=== PATIENT | male | born 1975 | race Caucasian/White ===

== ENCOUNTER → 2018-05-05 | Outpatient (CLI) | payer OTHER ==
[~2018-05-05] MED LIST: NORCO 5-325 TA1 EAC1 PO; OMEPRAZOLE 20 M20 M1 PO
== END ==
LOC: M.ULTRA 11:00
DX: N50.819 Testicular pain, unspecified (principal); R10.30 Lower abdominal pain, unspecified

== ENCOUNTER 2019-09-29 15:45 | Inpatient (IN) | payer OTHER ==
[2019-09-29] VITALS (12 sets, daily range): BP systolic 100–153; BP diastolic 59–87
[~2019-09-29] VITALS: Ht 170.2 cm; Wt 98.9 kg
[2019-09-29] MEDS ORDERED: LISINOPRIL2.5 MG PO (15:50)
[2019-09-29 16:07] LABS: ABSOLUTE BASOPHILS 0.2 thou/uL (0.0-0.2); ABSOLUTE EOSINOPHILS 0.2 thou/uL (0.0-0.7); ABSOLUTE LYMPHOCYTES 1.7 thou/uL (0.8-5.3); ABSOLUTE MONOCYTES 0.9 thou/uL (0.0-1.2); ABSOLUTE NEUTROPHILS 7.7 thou/uL (1.6-8.1); BASOPHILS 1.5 %; EOSINOPHILS 2.3 %; HEMOGLOBIN 15.2 gm/dL (14.0-18.0); MCH 30.2 pg (26.0-34.0); MCHC 35.4 g/dL (28.0-37.0); MCV 85.2 fL (80.0-100.0); MONOCYTES 8.8 %; MPV 7.5 fl. (7.2-11.1); NUCLEATED RBCS 0 /100WBC; PLATELET COUNT* 486 thou/uL (150-400); POLYS 71.4 %; RBC 5.05 mil/uL (4.50-6.00); RDW-CV 12.5 % (10.5-14.5); WBC 10.8 thou/uL (4.0-11.0)
--- NOTE | 2019-09-29 16:09 | NUR ---
SEE CODE STEMI FLOWSHEET FOR ADDITIONAL INFORMATION. 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
[2019-09-29 16:14] LABS: CREATININE 1.1 mg/dL (0.6-1.3)
[2019-09-29 16:15] LABS: APTT 25.8 Seconds (25.0-31.3); PROTIME 10.3 Seconds (9.20-11.50)
[2019-09-29 16:19] LABS: ALBUMIN 3.8 g/dL (3.4-5.0); TOTAL BILIRUBIN 0.6 mg/dL (<0.1-1.0); TOTAL PROTEIN 8.2 g/dL (6.4-8.2)
--- NOTE | 2019-09-29 18:30 | CARD ---
[address] [address] CARDIAC CATH REPORT Name: LACHELLE MCINTYRE Room: 006-P ADM IN M.R.#: [id number] Admission: 09/29/19 Attend Phys: Jaskaran Bates MD, F Discharge: Date of : 77 Report #: [id number] THIS REPORT FOR: //name// cc: Buck Reyes Vincent R. DO ~ APPROVED REPORT Study performed: 09/29/2019 15:41:54 Patient Details Patient Status: ED Room #: The patient is a 43 year-old male Event Personnel Jaskaran Bates Automobile Lights Assembler, Trudi Fuentes RN Actuarial Science Professor, Nelia Adhikari RTR Monitor, Justine Turcios RTR Scrub, Jennifer Levin RN Actuarial Science Professor Procedures Performed Art Access - R radial artery, Left Heart Cath w/or w/o Coronaries LHC, BROOK Revasc AMI Total/Sub Single RCA AMIREVSING , Hemostasis with Hemoband Indication Abnormal ECG, STEMI (>0 to less than or equal to 6 hours), Chest pain Risk Factors Arterial Hypertension Admission/Lab Medications/Medications given during procedure Glycoprotein IllbIlla Inhibitors, Heparin Unfract., Morphine IV 2 mg, Radial cocktail Nitroglycerin IA 400 mcg total, Verapamil IA 5 mg total, Heparin IV bolus 7000 units total, Amiodarone IV 150 mg per min, Amiodarone IV 600 ml per hr, Amiodarone IV 2 mg per min, Effient PO 60 mg, Aggrastat IV bolus 10 ml Procedure Narrative The patient was brought emergently to the Cardiac Catheterization Laboratory and was prepped and draped in a sterile manner. The right wrist was infiltrated with 2% Lidocaine subcutaneous anesthesia. A 6F Slender Glidesheath sheath was inserted into the right radial artery. Coronary angiography was performed using coronary diagnostic catheters. The right coronary system [place] [address] CARDIAC CATH REPORT Name: LACHELLE MCINTYRE Room: [address] IN ..#: [id number] Admission: 09/29/19 Attend Phys: Jaskaran Bates MD, F Discharge: Date of : 77 Report #: [id number] a 6F JR4 catheter. The left coronary system was accessed and visualized with a 6F JL4 catheter. The left ventricle was accessed and visualized with a 6F JR4 and 6F Pigtail catheter. Left ventricular/Aortic Valve gradient assessed via catheter pullback. Left ventriculogram was performed in VEGAS projection. Closure device was deployed with a 6 Fr vascband. The patient tolerated the procedure well and there were no complications associated with the procedure. There was no hematoma. During the procedure, the patient developed ventricular fibrillation. Patient was defibrillated twice successfully at 300 Joules. Patient was given 150 mg of IV amiodarone. Vasc band closure device of right radial artery, with 11 ml. Intraoperative Conscious Sedation Procedure start time: 16:12. Procedure end time: 17:06. No sedation given. Fluoro Time: 13.3 minutes Dose: DAP [id number] cGycm2 2845 mGy Contrast Type and Amount: Visipaque 265 ml Coronary Angiography The patient's coronary anatomy is right dominant. [place] Artery Percent Stenosis Left Main: 0 % Prox LAD: 30 % Mid/Distal LAD: 0 % Circumflex: 0 % RCA: 100 % Ramus: %Thrombus noted in the distal RCA Left Ventriculography The left ventricular ejection fraction is estimated to be 60-65%. Left ventricular wall motion abnormalities are not present. There is no mitral insufficiency. Hemodynamics The aortic pressure is 126/77 mmHg with a mean of 97 mmHg. The left ventricular pressure is 128/10 mmHg with a mean of mmHg. The left ventricular end diastolic pressure is 18 mmHg. There was no gradient across the aortic valve upon pullback. Pullback from the left ventricle to the aorta revealed no gradient across the aortic valve. PCI Technique Lesion Anticoagulation was achieved with Heparin. bolus of iv aggrastat given Percutaneous coronary intervention was performed on the distal right coronary artery. The lesion stenosis prior to intervention was [facility] [address] [place] [address] CARDIAC CATH REPORT Name: LACHELLE MCINTYRE Room: [address] IN .R.#: [id number] Admission: 09/29/19 Attend Phys: Jaskaran Bates MD, F Discharge: Date of : 77 Report #: [id number] 100% with DAR 0 flow. A 6FR XBRCA Guide Catheter was used to engage the rca ostium. A BMW 190cm Interventional Guidewire was used to cross the lesion. BALLOON DILATION A Balloon catheter Trek RX 2.5 X 8 was inserted and inflated up to 9.00atm for 9seconds. Repeat angiography revealed the following post-dilatation results: 50% stenosis. Additional Inflation: 12.00atm for 12seconds. Additional Inflation: 14.00atm for 18seconds. Because of tortous aorta, unable to cannulate rca with neither 3drc nor amplatz right I guide. STENT DEPLOYMENT A drug-eluting stent [place] RX Stent 3.0X15mm was inserted and inflated up to 10.00atm for 15seconds. Repeat angiography revealed the following post-stent deployment results: 0% stenosis. Additional Inflation: 12.00atm for 11seconds. Final angiography reveals 0 % stenosis with DAR 3 flow. Conclusion 1. acute IWSTEMI with acute occlusion of the distal rca 2. successful placement of a single drug eluting stent in the rca 3. LVEF 60-65% 4. successful direct current cardioversion of two episodes of ventricular fibrillaion during the procedure Recommendations Cardiac Rehabilitation Referral Aggressive Medical Therapy Medications Administered Prasugrel <ELECTRONICALLY SIGNED> By: Jaskaran Bates MD, FACC 09/29/191827 27 27Dafederico Bates MD, FACC /INF
--- NOTE | 2019-09-29 18:45 | NUR ---
ADMITTED TO ICU AT 1745 POST STEMI. INITIALLY HAD BLURRY VISION, NOT DOUBLE. DR CALZADA AT BEDSIDE & REPORTED TO HIM. THEN HAD HOT FLASH. BS CHECKED-WNL. RESOLVED. DENIED CP, NAUSEA & VOMITING.
[2019-09-30] VITALS (18 sets, daily range): BP systolic 119–137; BP diastolic 65–86
[2019-09-30 04:11] LABS: ABSOLUTE BASOPHILS 0.1 thou/uL (0.0-0.2); ABSOLUTE EOSINOPHILS 0.2 thou/uL (0.0-0.7); ABSOLUTE LYMPHOCYTES 1.1 thou/uL (0.8-5.3); ABSOLUTE MONOCYTES 0.9 thou/uL (0.0-1.2); ABSOLUTE NEUTROPHILS 7.4 thou/uL (1.6-8.1); BASOPHILS 1.2 %; EOSINOPHILS 1.8 %; HEMATOCRIT 39.8 % (42.0-52.0); HEMOGLOBIN 13.7 gm/dL (14.0-18.0); LYMPHOCYTES 10.9 %; MCH 29.8 pg (26.0-34.0); MCHC 34.5 g/dL (28.0-37.0); MCV 86.5 fL (80.0-100.0); MONOCYTES 9.5 %; MPV 7.6 fl. (7.2-11.1); NUCLEATED RBCS 0 /100WBC; POLYS 76.6 %; RDW-CV 12.1 % (10.5-14.5); WBC 9.7 thou/uL (4.0-11.0)
[2019-09-30 04:30] LABS: ANION GAP 10 mmol/L (7-16); BUN 14 mg/dL (7-18); CALCIUM 8.3 mg/dL (8.5-10.1); CHLORIDE 106 mmol/L (98-107); CHOLESTEROL 142 mg/dL (<200); CO2 23 mmol/L (21-32); CREATININE 0.8 mg/dL (0.6-1.3); GLUCOSE 106 mg/dL (70-99); HDL CHOLESTEROL 17 mg/dL (>40); LDL CHOLESTEROL 90 mg/dL (<100); SODIUM 139 mmol/L (136-145); TC:HDL 8.4 Ratio (Not establshd); TRIGLYCERIDE 177 mg/dL (<150); VLDL 35 mg/dL (<40)
[2019-09-30 04:33] LABS: PLATELET COUNT* 361 thou/uL (150-400)
[2019-09-30 04:34] LABS: SERUM ASSESSMENT CLEAR; TROPONIN-I LEVEL 18.05 ng/mL (<0.06)
--- NOTE | 2019-09-30 18:01 | NUR ---
PT OUT OF BED AND TOLERATING ACTIVITY. NO CHEST PAIN. VSS. TOLERATING DIET. GOOD OUTPUT. DSG TAKEN OFF OF RADIAL SITE. PROGRESSING TOWARDS GOALS.
[2019-10-01] VITALS: BP 147/77
[2019-10-01 04:00] VITALS: BP 137/73
--- NOTE | 2019-10-01 06:06 | NUR ---
PATIENT SLEPT MOST OF THE NIGHT. IV REMAINS SALINE LOCKED. PATIENT REMAINS SR ON THE MONITOR. PATIENT IS POSSIBLY GOING HOME TODAY. WILL CONTINUE TO MONITOR.
[2019-10-01 08:00] VITALS: BP 140/81
--- NOTE | 2019-10-01 11:22 | EKG ---
[place] [address] ELECTROCARDIOGRAM REPORT Name: LACHELLE MCINTYRE Room: [address] ADM IN M.R.#: [id number] Admission: 09/29/19 Attend Phys: Jaskaran Bates MD Discharge: Date of : 77 Date of Service: 10/01/19 0758 Report #: [id number] THIS REPORT FOR: //name// [facility] Test Date: 2019-10-01 Test Time: 07:58:15 Pat Name: LACHELLE MCINTYRE Department: Room: [address] Gender: M Specialty Molder: : 1975 Requested By: Jaskaran Bates Order Number: [id number] Reading MD: Charlie Mazariegos Measurements Intervals [place] Rate: 73 P: 56 IN: 183 QRS: -21 QRSD: 95 T: 17 QT: 390 QTc: 430 Interpretive Statements Sinus rhythm Inferior infarct, old No previous ECG available for comparison Electronically Signed On 10-01-2019 11:21:26 CDT by Charlie Mazariegos [email or web address] <ELECTRONICALLY SIGNED> By: Neo Mazariegos MD, [facility] 10/01/19 1121 0758 0758 Neo Mazariegos MD, [facility] /EPI
[2019-10-01 12:30] VITALS: BP 115/70
--- NOTE | 2019-10-01 13:11 | NUR ---
assumed pt care report received from nurse.pt is aox4, tracing sr on compliance monitor. on ra. o2 saturation is 97%. temperature is 98.0. no fever. complains of right shoulder pain. tylenol given for apin. pain reassessed at this moment pt states that pain has gone away. no further complaint. director of medical staff services saw pt in his room this am. no discharge order received. lef ac iv removed. r hand iv kept in place. pt is independant. am medicine administered as ordered. call light at reach. will continue to monitor pt
[2019-10-01 16:23] VITALS: BP 97/55
[2019-10-02] VITALS (7 sets, daily range): BP systolic 99–137; BP diastolic 57–80
--- NOTE | 2019-10-02 10:05 | EKG ---
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
--- NOTE | 2019-10-02 10:06 | EKG ---
[place] [address] ELECTROCARDIOGRAM REPORT Name: LACHELLE MCINTYRE Room: [address] ADM IN .R.#: [id number] Admission: 09/29/19 Attend Phys: Jaskaran Bates MD Discharge: Date of : 77 Date of Service: 09/30/19812 Report #: [id number] THIS REPORT FOR: //name// [facility] Test Date: 2019-09-30 Test Time: 08:13:52 Pat Name: LACHELLE MCINTYRE Department: Room: [facility] Gender: M Marketing Communications Specialist: [id number] : 1975 Requested By: Jaskaran Bates Order Number: [id number] Reading MD: Jaskaran Bates Measurements Intervals [place] Rate: 77 P: 57 DE: 183 QRS: -18 QRSD: 90 T: 45 QT: 386 QTc: 437 Interpretive Statements Sinus rhythm Inferior infarct, old Electronically Signed On 10-02-2019 10:04:41 CDT by Jaskaran Bates [email or web address] <ELECTRONICALLY SIGNED> By: Jaskaran Bates MD, [facility] 10/02/19 1004 2 2 Jaskaran Bates MD, FACC /EPI
[2019-10-02] MEDS ORDERED: LOPRESSOR50 MG PO (11:22)
[2019-10-02] MEDS ORDERED: NITROGLYCERIN0.4 MG SUBLING (11:23)
[2019-10-02] MEDS ORDERED: EFFIENT10 MG PO (11:24)
[2019-10-02] MEDS ORDERED: LIPITOR40 MG PO (11:26)
--- NOTE | 2019-10-02 14:05 | EKG ---
[place] [address] ELECTROCARDIOGRAM REPORT Name: LACHELLE MCINTYRE Room: [address] DIS IN M.R.#: [id number] Admission: 09/29/19 Attend Phys: Jaskaran Bates MD Discharge: 10/02/19 Date of : 77 Date of Service: 09/29/19 1545 Report #: [id number] THIS REPORT FOR: //name// [facility] Test Date: 2019-09-29 Test Time: 15:45:10 Pat Name: LACHELLE MCINTYRE Department: Room: [address] Gender: M Human Resource Adviser: CYNTHIA : 1975 Requested By: Elizabeth Reilly Order Number: [id number] Reading MD: Jaskaran Bates Measurements Intervals [place] Rate: 83 P: 65 VA: 165 QRS: 58 QRSD: 100 T: 84 QT: 370 QTc: 435 Interpretive Statements Sinus rhythm Probable left atrial enlargement Inferior infarct, acute (RCA) Probable RV involvement, suggest recording right precordial leads No previous ECG available for comparison Electronically Signed On 10-02-2019 14:04:12 CDT by Jaskaran Bates [email or web address] <ELECTRONICALLY SIGNED> By: Jaskaran Bates MD, FACC 10/02/19 1404 1545 1545 Jaskaran Bates MD, [facility] /EPI
--- NOTE | 2019-10-02 14:07 | NUR ---
I ASSUMED CARE OF THE PATIENT AT 0700. HE IS ALERT AND ORIENTED X4 AND IS UP AD SUSY. BED IS IN THE LOW LOCKED POSITION AT CALL LIGHT IS IN REACH. HOURLY ROUNDING IS COMPLETED AND PATIENT NEEDS ARE MET. PAIN IS DENIED. IV WAS D/C'D AND MONITOR WAS REMOVED. PATIENT D/C'D TO HOME WITH SCRIPTS AT 1245 WITH HIS . HE UNDERSTANDS DISCHARGE AND FOLLOWUP APPOINTMENTS ARE ALREADY MADE.
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
== END 2019-10-02 12:45 | disposition home or self-care (01) | DRG 246 ==
LOC: M.ERS 15:45 → M.2W 16:05 → M.TBA-CV 16:05 → M.ICU 18:11 → M.2W 09-30 19:54
PROVIDERS: Personal Emergency Response Attendant; ADMIT Internal Medicine Cardiovascular Disease
PROC: B215YZZ Fluoroscopy of Left Heart using Other Contrast (ICD-10-PCS; principal; 2019-09-29)
PROC: 5A2204Z Restoration of Cardiac Rhythm, Single (ICD-10-PCS; principal; 2019-09-29)
PROC: B211YZZ Fluoroscopy of Multiple Coronary Arteries using Other Contrast (ICD-10-PCS; principal; 2019-09-29)
PROC: 4A023N7 Measurement of Cardiac Sampling and Pressure, Left Heart, Percutaneous Approach (ICD-10-PCS; principal; 2019-09-29)
PROC: 027034Z Dilation of Coronary Artery, One Artery with Drug-eluting Intraluminal Device, Percutaneous Approach (ICD-10-PCS; principal; 2019-09-29)
DX: I21.19 ST elevation (STEMI) myocardial infarction involving other coronary artery of inferior wall (principal); I49.01 Ventricular fibrillation; K21.9 Gastro-esophageal reflux disease without esophagitis; I10 Essential (primary) hypertension; K22.70 Barrett's esophagus without dysplasia; G47.30 Sleep apnea, unspecified; Z79.899 Other long term (current) drug therapy

== ENCOUNTER → 2020-05-29 | Outpatient (CLI) | payer OTHER ==
[~2020-05-29] MED LIST changes: +EFFIENT10 MG PO; +LIPITOR40 MG PO; +LISINOPRIL2.5 MG PO; +LOPRESSOR50 MG PO; +NITROGLYCERIN0.4 MG SUBLING
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
== END ==
LOC: M.NUC 05-17 11:33
PROVIDERS: ATTEND Internal Medicine Cardiovascular Disease
DX: I25.10 Atherosclerotic heart disease of native coronary artery without angina pectoris (principal); R00.0 Tachycardia, unspecified; R07.89 Other chest pain